=== PATIENT | male | born 1965 | race Caucasian/White ===

== ENCOUNTER 2018-08-21 11:26 | Emergency (ER) | payer OTHER ==
[~2018-08-21] VITALS: Ht 182.9 cm; Wt 99.8 kg
[2018-08-21] MEDS ORDERED: CYCL10 PO (11:50)
[2018-08-21] MEDS ORDERED: Voltaren100 GM TOP (11:50)
[2018-08-21] MEDS ORDERED: IBUP800 PO (11:50)
== END 2018-08-21 12:12 | disposition home or self-care (01) ==
LOC: ER 11:26
DX: G89.29 Other chronic pain (principal); M54.5 Low back pain; Z79.899 Other long term (current) drug therapy
CPT/HCPCS: 96372; 99283-25; J1885